=== PATIENT | female | born 1970 | race Caucasian/White ===

== ENCOUNTER 2018-07-18 10:56 | Emergency (ER) | payer OTHER ==
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
[2018-07-18 12:30] VITALS: BP 91/40
--- NOTE | 2018-07-18 13:30 | RADIOLOGY IMAGING REPORT ---
[place] [facility] [place] NAME: Mary Mcdowell : 1970 MR: [id number] V: [id number] EXAM DATE: ORDERING PHYSICIAN: JUSTIN DIMAS TECHNOLOGIST: [place] [facility] [place] Mary Mcdowell : 1970 Visit/Account:[id number] Date of Sevice: 07/18/2018 XR THORACIC SPINE 3 V, L-SPINE >4 VIEWS INDICATION: Back pain. COMPARISON: None available FINDINGS: Thoracic spine: The vertebral body heights and disc spaces are well maintained. There is no acute osseous or acute alignment abnormality. Mild marginal anterior osteophytes seen throughout the thoracic spine. Lumbar spine: There are 5 lumbar type vertebral bodies. There is no acute osseous or acute alignment abnormality. There is mild multilevel degenerative disc space disease. Disc space narrowing is greatest at L5-S1. There is moderate facet arthropathy present at that level. No spondylolisthesis is seen. The vertebral body heights appear well-maintained. IMPRESSION: 1. No acute osseous or acute alignment abnormality of the thoracic and lumbar spine. 2. Mild degenerative changes as above. Report Dictated By: Trace Saucedo at 07/18/2018 1:24 PM Report E-Signed By: Trace Saucedo at 07/18/2018 1:26 PM WSN:[email or web address]
--- NOTE | 2018-07-18 13:31 | RADIOLOGY IMAGING REPORT ---
FACILITY: [facility] - [place] PATIENT NAME: Mary Mcdowell : 1970 MR: [id number] V: [id number] EXAM DATE: ORDERING PHYSICIAN: JUSTIN DIMAS TECHNOLOGIST: Location: [facility] Patient: Mary Mcdowell : 1970 Visit/Account:[id number] Date of Sevice: 07/18/2018 XR THORACIC SPINE 3 V, L-SPINE >4 VIEWS INDICATION: Back pain. COMPARISON: None available FINDINGS: Thoracic spine: The vertebral body heights and disc spaces are well maintained. There is no acute osseous or acute alignment abnormality. Mild marginal anterior osteophytes seen throughout the thoracic spine. Lumbar spine: There are 5 lumbar type vertebral bodies. There is no acute osseous or acute alignment abnormality. There is mild multilevel degenerative disc space disease. Disc space narrowing is greatest at L5-S1. There is moderate facet arthropathy present at that level. No spondylolisthesis is seen. The vertebral body heights appear well-maintained. IMPRESSION: 1. No acute osseous or acute alignment abnormality of the thoracic and lumbar spine. 2. Mild degenerative changes as above. Report Dictated By: Trace Saucedo at 07/18/2018 1:24 PM Report E-Signed By: Trace Saucedo at 07/18/2018 1:26 PM WSN:[email or web address]
[2018-07-18] MEDS ORDERED: CYCL10TA29 PO (13:34)
[2018-07-18] MEDS ORDERED: DICL-195 PO (13:34)
== END 2018-07-18 13:52 | disposition home or self-care (01) ==
LOC: ER 11:12
DX: M62.830 Muscle spasm of back (principal); S13.4XXA Sprain of ligaments of cervical spine, initial encounter
CPT/HCPCS: 72072; 72120; 99284